=== PATIENT | female | born 1960 | race Caucasian/White ===

== ENCOUNTER 2018-05-12 08:45 | Emergency (ER) | payer MEDICAID ==
[~2018-05-12] VITALS: Ht 165.1 cm; Wt 81.6 kg
[2018-05-12 08:45] VITALS: BP_SYST 155
--- NOTE | 2018-05-12 08:45 | NUR ---
AMBULATORY TO BED 8
[2018-05-12] MEDS ORDERED: EPINEPHrine 1 MG/ML AMP SUBCUT ONE (09:00)
--- NOTE | 2018-05-12 09:00 | NUR ---
Dr. Escobar at bedside for evaluation
--- NOTE | 2018-05-12 09:10 | NUR ---
Patient presented in ER with c/o rash face, hand and some in chest for 3 weeks.stated mostly face feels like burning at home applying hydrocortisone but is not helping.came to ER for further evaluation.pt speak syriac daugther at bedside translating. vital sign stable, aferbrile. encourage to call when assistance needed.
[2018-05-12] MEDS ORDERED: PREDNISONE 20 MG TABLET PO ONE (09:15)
[2018-05-12 09:43] LABS: BASOPHILS % (AUTO) 0.4 % (0.0-2.0); EOSINOPHILS # (AUTO) 0.1 K/uL (0.0-0.4); EOSINOPHILS % (AUTO) 3.1 % (0.0-4.0); HEMATOCRIT 35.2 % (36-48); HEMOGLOBIN 12.1 g/dL (12.0-16.0); LYMPHOCYTES # (AUTO) 1.5 K/uL (1.0-5.5); LYMPHOCYTES % (AUTO) 32.9 % (20.5-51.5); MEAN CORPUSCULAR HEMOGLOBIN 31 pg (27-31); MEAN CORPUSCULAR HGB CONC 34 % (32-36); MEAN CORPUSCULAR VOLUME 89 fL (79.0-98.0); MONOCYTES # (AUTO) 0.4 K/uL (0.0-1.0); NEUTROPHILS # (AUTO) 2.7 K/uL (1.8-7.7); NEUTROPHILS % (AUTO) 54.6 % (40.0-70.0); PLATELET COUNT (AUTO) 226 K/uL (130-430); RED BLOOD CELL COUNT(AUTO) 3.97 MIL/uL (4.2-6.2); RED CELL DISTRIBUTION WIDTH 12.8 % (9.0-15.0); WHITE BLOOD COUNT (AUTO) 4.7 K/uL (4.8-10.8)
[2018-05-12 10:11] LABS: CALCIUM 8.5 mg/dL (8.4-11.0); CREATININE 0.94 mg/dL (0.55-1.30); POTASSIUM 3.7 mmol/L (3.5-5.1)
[2018-05-12 10:16] LABS: ALBUMIN 3.4 g/dL (3.4-4.8); PROTHROMBIN TIME 9.9 SECS (9.5-12.5); TOTAL BILIRUBIN 0.4 mg/dL (0.0-1.0)
[2018-05-12] MEDS ORDERED: BACITRACIN 1 GM OINT TP ONE ×2 (11:24→11:30)
--- NOTE | 2018-05-12 11:26 | NUR ---
Patient given written and verbal discharge instructions and verbalizes understanding. ER MD discussed with patient the results and treatment provided. Patient in stable condition. ID arm band removed. Rx of prednisone,epinephrine given. Patient educated on pain management and to follow up with PMD. Pain Scale 0. Opportunity for questions provided and answered. Medication side effect fact sheet provided.
[2018-05-12 11:27] VITALS: BP_SYST 146
== END 2018-05-12 11:26 | disposition home or self-care (01) ==
LOC: SED 08:45
DX: L50.9 Urticaria, unspecified (principal)
CPT/HCPCS: 36415; 80053; 84703; 85025; 85610; 85730; 96372; 99284; J0171; J7512

== ENCOUNTER 2019-03-15 12:33 | Emergency (ER) | payer MEDICAID ==
[~2019-03-15] VITALS: Ht 165.1 cm; Wt 78.9 kg
[2019-03-15 12:45] VITALS: BP_SYST 143
[2019-03-15] MEDS ORDERED: HYDROcodone/ACETAMIN 5-325 MG TAB (NORCO/ VICODIN) PO ONE (13:00)
[2019-03-15] MEDS ORDERED: KETOROLAC TROMETHAMINE 30 MG VIAL IVP ONE (13:45)
[2019-03-15 14:50] VITALS: BP_SYST 138
== END 2019-03-15 14:50 | disposition home or self-care (01) ==
LOC: SED 12:33
DX: S92.351A Displaced fracture of fifth metatarsal bone, right foot, initial encounter for closed fracture (principal); R03.0 Elevated blood-pressure reading, without diagnosis of hypertension; W01.0XXA Fall on same level from slipping, tripping and stumbling without subsequent striking against object, initial encounter; Y93.89 Activity, other specified; Y92.89 Other specified places as the place of occurrence of the external cause; Y99.8 Other external cause status
CPT/HCPCS: 29515; 73610; 73620; 99283; J7030; J1885

== ENCOUNTER 2022-11-30 16:09 | Emergency (ER) | payer MEDICAID ==
[~2022-11-30] VITALS: Ht 162.6 cm; Wt 86.2 kg
[~2022-11-30 16:09] MED LIST: BUDE180A IH; LEVO88TA5 PO; MONT10TA22 PO; OMEP-268 PO; PRAZ2CAP PO
[2022-11-30 16:12] VITALS: BP_SYST 132
--- NOTE | 2022-11-30 16:17 | NUR ---
Patient to ER HALLWAY CHAIR 2 to gown for evaluation. Side rails up. Report given to SELF.
--- NOTE | 2022-11-30 16:27 | NUR ---
DR. VALDEZ AT BEDSIDE TO ASSESS PT.
--- NOTE | 2022-11-30 16:27 | NUR ---
PT MOVED TO BED ONE. PLACED ON MONITOR, ENDORSED TO HARPER DURBIN.
[2022-11-30] MEDS ORDERED: DIPHENHYDRAMINE HCL 50 MG CAPSULE PO ONE (16:30)
[2022-11-30] MEDS ORDERED: predniSONE 20 MG TABLET PO ONE (16:30)
[2022-11-30] MEDS ORDERED: TETRACAINE HCL/PF 0.5% OPHTHALMIC DROPS 4 ML OP ONE (16:30)
--- NOTE | 2022-11-30 16:30 | NUR ---
PT BIB DAUGHTER, AWAKE AND ALERT AOX4. NO SOB OR DISTRESS. PT C/O ITCHY EYES AND SKIN IRITATION. PT STATED SHE WAS USING LIQUIDER DRAINO ON HER BATHROOM SINK AND THE FUMES IRITATED HER SKIN. PT DENIES CONTACT WITH THE CHEMICAL TO HER SKIN. PT DENIES SOB, N/V.
--- NOTE | 2022-11-30 16:35 | NUR ---
MD DR JOHNSON AT BEDSIDE
[2022-11-30] MEDS ORDERED: NAPH15DR52 EACH EYE (16:48)
[2022-11-30] MEDS ORDERED: PRED20TA PO (16:48)
[2022-11-30 17:54] VITALS: BP_SYST 125
--- NOTE | 2022-11-30 17:56 | NUR ---
Patient given written and verbal discharge instructions and verbalizes understanding. ER MD DR JOHNSON discussed with patient the results and treatment provided. Patient in stable condition. ID arm band removed. Rx of PREDISONE, AND VASOCON given. Patient educated on pain management and to follow up with PMD. Pain Scale 0/10. Opportunity for questions provided and answered. Medication side effect fact sheet provided.
== END 2022-11-30 17:52 | disposition home or self-care (01) ==
LOC: SED 16:09
DX: L23.9 Allergic contact dermatitis, unspecified cause (principal); E78.5 Hyperlipidemia, unspecified; I10 Essential (primary) hypertension; Z79.899 Other long term (current) drug therapy
CPT/HCPCS: 99283; Q0163; J7512